=== PATIENT | female | born 1975 | race Hispanic/Latino ===

== ENCOUNTER 2024-11-13 19:04 | Emergency (ER) | payer OTHER ==
[~2024-11-13] VITALS: Ht 162.6 cm; Wt 91.6 kg
[2024-11-13] MEDS ORDERED: HYDROCHLOROTH12.5 M1 PO (19:33)
[2024-11-13] MEDS ORDERED: LISINOPRIL-HCT1 EAC2 PO (19:33)
[2024-11-13 19:34] LABS: EOSINOPHILS 2.6 % (0-6); HEMATOCRIT 41.4 % (35.0-50.0); LYMPHOCYTES 36.8 % (24-44); MCH 29.3 (27-36); MCHC 33.8 g/dl (30-36); MCV 86.8 fl (81-99); MONOCYTES 8.5 % (0-12); NEUTROPHILS 51.1 % (39-80); PLATELET COUNT 283 K/uL (140-440); RBC 4.77 M/ul (4.3-5.7); RDW 14.5 (10.5-15.0)
[2024-11-13] MEDS ORDERED: HYDROCODON-ACE1 EA10 PO (19:34)
[2024-11-13] MEDS ORDERED: FAMOTIDINE 20 MG/ 2 ML VIAL IV ONE (19:45)
[2024-11-13 19:55] LABS: ALBUMIN/GLOBULIN RATIO 1.03 (1.1-2.4); ANION GAP 12.9 (7-21); BILIRUBIN, TOTAL 0.2 ng/dL (0.2-1.0); BUN/CREATININE RATIO 25.53 (6.0-28.6); CALCIUM 9.7 mg/dL (8.5-10.1); CREATININE, SERUM 0.94 mg/dL (0.55-1.02); MAGNESIUM 2.1 mg/dL (1.8-2.4); POTASSIUM 3.9 mmol/L (3.5-5.1); PROTEIN, TOTAL 7.9 g/dL (6.4-8.2)
[2024-11-13 20:25] LABS: BILIRUBIN, URINE NEGATIVE (negative); BLOOD/HGB, URINE NEGATIVE (Negative); KETONE, URINE NEGATIVE (Negative); LEUK ESTERASE, URINE NEGATIVE (negative); NITRITE, URINE NEGATIVE (negative)
[2024-11-13] MEDS ORDERED: MIRALAX119 GM PO (20:30)
[2024-11-13] MEDS ORDERED: COLACE100 MG PO (20:30)
[2024-11-13 20:41] VITALS: BP 158/96
== END 2024-11-13 20:42 | disposition home or self-care (01) ==
LOC: ED 19:04
PROVIDERS: Internal Medicine
DX: R10.30 Lower abdominal pain, unspecified (principal); G89.29 Other chronic pain; L76.34 Postprocedural seroma of skin and subcutaneous tissue following other procedure; I10 Essential (primary) hypertension; Z79.899 Other long term (current) drug therapy; Z98.890 Other specified postprocedural states
CPT/HCPCS: 36415; 80053; 81003; 83690; 83735; 84702; 85025; 96374; 99284-25